=== PATIENT | female | born 1985 | race Caucasian/White ===

== ENCOUNTER 2021-10-27 06:15 | Day surgery (SDC) | payer MEDICAID ==
[~2021-10-27] VITALS: Ht 170.2 cm; Wt 68.0 kg
[2021-10-27 06:52] LABS: HCG,QUAL RESULT NEGATIVE (NEGATIVE)
[2021-10-27] MEDS ORDERED: fentaNYL CITRATE/PF 100 MCG/2 ML AMP ONE (07:05)
[2021-10-27] MEDS ORDERED: SIMETHICONE 40 MG/0.6 ML ML ONE (07:05)
[2021-10-27] MEDS ORDERED: MIDAZOLAM HCL 5 MG/5 ML VIAL ONE (07:05)
[2021-10-27 08:30] VITALS: BP_SYST 110
[2021-10-27] MEDS ORDERED: DIPHENHYDRAMINE INJ 50 MG/ML VIAL ONE (08:36)
== END 2021-10-27 14:27 | disposition home or self-care (01) ==
LOC: SDS 06:15 → SMU 06:16 → SDS 14:27
PROVIDERS: ATTEND Internal Medicine
DX: Z12.11 Encounter for screening for malignant neoplasm of colon (principal); K52.9 Noninfective gastroenteritis and colitis, unspecified; K51.90 Ulcerative colitis, unspecified, without complications; Z87.891 Personal history of nicotine dependence; Z79.899 Other long term (current) drug therapy
CPT/HCPCS: 36415; 45380; 84703; 87426; 88305; 99152; 99153; G0378; J1200; J2250; J3010